=== PATIENT | male | born 1990 | race African-American/Black ===

== ENCOUNTER 2017-03-27 22:33 | Emergency (ER) | payer OTHER, MEDICAID ==
[~2017-03-27] VITALS: Ht 190.5 cm; Wt 115.0 kg
[2017-03-27 22:36] VITALS: BP 133/86; PULSE 92; RESP 16; TEMP 98.8; O2SAT 98
[2017-03-28] MEDS ORDERED: ORPHENADRINE INJ 60 MG/2 ML AMP IM ONE (01:15)
[2017-03-28] MEDS ORDERED: KETOROLAC TROMETHAMINE 60 MG/2 ML (IM) VIAL IM ONE (01:15)
[2017-03-28] MEDS ORDERED: DEXAMETHASONE SOD PHOS 20 MG/5 ML VIAL IM ONE (01:15)
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
[2017-03-28 02:48] VITALS: RESP 16
[2017-03-28] MEDS ORDERED: CYCL10TA PO ×2 (02:54→03:11)
[2017-03-28] MEDS ORDERED: IBUP1TAB7 PO (02:54)
== END 2017-03-28 03:13 | disposition home or self-care (01) ==
LOC: NEPD 22:33
DX: S29.012A Strain of muscle and tendon of back wall of thorax, initial encounter (principal); S16.1XXA Strain of muscle, fascia and tendon at neck level, initial encounter; V89.2XXA Person injured in unspecified motor-vehicle accident, traffic, initial encounter; Y92.415 Exit ramp or entrance ramp of street or highway as the place of occurrence of the external cause; F17.200 Nicotine dependence, unspecified, uncomplicated
CPT/HCPCS: 96372; 99284; J1100; J1885; J2360